=== PATIENT | female | born 1940 | race Hispanic/Latino ===

== ENCOUNTER 2025-03-25 15:07 | Emergency (ER) | payer OTHER ==
[~2025-03-25] VITALS: Ht 152.4 cm; Wt 74.4 kg
[2025-03-25 15:36] LABS: BASOPHILS # (AUTO) 0.05 K/uL (0.00-0.20); BASOPHILS % (AUTO) 0.6 % (0.0-5.0); EOSINOPHILS # (AUTO) 0.11 K/uL (0.00-0.70); EOSINOPHILS % (AUTO) 1.4 % (0.0-8.0); HEMATOCRIT 43.9 % (36-48); IMMATURE GRANULOCYTE ABSOLUTE 0.02 K/uL (0-1); LYMPHOCYTES # (AUTO) 1.7 K/uL (1.0-4.8); LYMPHOCYTES % (AUTO) 21.3 % (21.0-51.0); MEAN CORPUSCULAR HEMOGLOBIN 33.8 pg (27.0-33.0); MEAN CORPUSCULAR HGB CONC 33.5 g/dL (32.0-36.0); MEAN CORPUSCULAR VOLUME 100.9 fL (79-99); MONOCYTES # (AUTO) 0.6 K/uL (0.1-1.0); MONOCYTES % (AUTO) 7.5 % (3.0-13.0); NEUTROPHILS # (AUTO) 5.6 K/uL (1.8-7.7); PLATELET COUNT (AUTO) 292 K/uL (130-400); RED BLOOD CELL COUNT(AUTO) 4.35 MIL/uL (4.00-5.50); RED CELL DISTRIBUTION WIDTH 14.1 % (11.0-15.5); WHITE BLOOD COUNT (AUTO) 8.1 K/uL (4.8-10.8)
[2025-03-25 15:45] LABS: CREATININE 0.9 mg/dL (0.5-1.0); POTASSIUM 4.4 mmol/L (3.5-5.1)
[2025-03-25 15:50] LABS: INR 1.02 (0.85-1.15); PROTHROMBIN TIME 10.8 SEC (9.6-11.6)
[2025-03-25 15:51] LABS: PARTIAL THROMBOPLASTIN TIME 25.3 SEC (26.3-35.5)
--- NOTE | 2025-03-25 16:00 | HMCIMG ---
Exam Type: CT HEAD/BRAIN W/O CONTRAST Clinical Information: RIGHT FACE WEAKNESS Comparison: None CT Dose Index (CTDI): 57.33 mGy Dose Length Product (DLP): 956.79 total mGy-cm Findings: The examination shows atrophy. There is low attenuation throughout the periventricular white matter locations, consistent with chronic small vessel ischemic changes. 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 No acute intra- or extra-axial fluid collections are seen. There is no evidence of acute or chronic hemorrhage. There is no mass effect or shift of midline structures. The skull windows show no significant abnormalities. IMPRESSION: 1. ATROPHY AND CHRONIC ISCHEMIC CHANGES. This study was performed using dose reduction techniques to include automated exposure control and/or adjustment of the mA and/or kV according to patient size.
[2025-03-25 16:15] LABS: B-TYPE NATRIURETIC PEPTIDE 22 pg/mL (0-100)
--- NOTE | 2025-03-25 16:22 | HMCIMG ---
Exam Type: CHEST 1VW Clinical Information: STROKE Comparison: None Findings: The lungs are clear of infiltrates. The heart is large in size. The bony and soft tissue structures of the chest are unremarkable. Large hiatal hernia projects behind the cardiac silhouette. Impression: Clear lungs.
[2025-03-25 18:17] LABS: APPEARANCE,URINE CLEAR (CLEAR); BILIRUBIN,URINE NEGATIVE (NEGATIVE); COLOR,URINE LIGHT-YELLOW (YELLOW); GLUCOSE, URINE (UA) NEGATIVE (NEGATIVE); KETONES,URINE NEGATIVE (NEGATIVE); LEUKOCYTE ESTERASE ,URINE NEGATIVE Leu/uL (NEGATIVE); NITRATE,URINE NEGATIVE (NEGATIVE); OCCULT BLOOD,URINE NEGATIVE (NEGATIVE); PH,URINE 6.5 (5.0-8.0); PROTEIN,URINE NEGATIVE (NEGATIVE); UROBILINOGEN,URINE 0.2 mg/dL (0.2-1.0)
[2025-03-25 18:25] LABS: ADD UA MICROSCOPIC NO
--- NOTE | 2025-03-25 18:54 | EKG ---
[facility] Test Date: 2025-03-25 Test Time: 15:27:28 Pat Name: NAOMY BOLIVAR Department: ED Patient [place]: [facility] [id number] Room: Gender: F Candy Roller: [id number] : 1940 Requested By: ABBIE VIERA Order Number: [id number] Reading MD: Yon Calhoun Measurements Intervals [place] Rate: 88 P: 21 NH: 128 QRS: -1 QRSD: 83 T: -44 QT: 374 QTc: 454 Interpretive Statements Sinus rhythm Nonspecific T abnormalities, diffuse leads No previous ECG available for comparison Electronically Signed On 03-25-2025 21:37:08 CDT by Yon Calhoun Please click the below link to view image of tracing.
--- NOTE | 2025-03-25 19:00 | ERN ---
General Chief Complaint: Stroke Symptoms Stated Complaint: STROKE SYMPTOMS Time Seen by MD: 15:13 Source: patient History of Present Illness Initial Comments Patient is a an 84-year-old female coming in to be evaluated for right facial numbness. Patient states that these symptoms began a couple of days ago he was recently diagnosed with shingles. Patient is currently taking medication for shingles. Per family members they noticed her slurred speech earlier today and decided to come in for further evaluation. Allergies: Coded Allergies: Penicillins (Unverified Allergy, Unknown, 03/25/25) Past Medical History Past Medical History: High Cholesterol, Hypertension Past Surgical History: None ROS Dictation CONSTITUTIONAL: No chills, no fever, no weakness, no diaphoresis, no malaise. HEAD/FACE: No signs of trauma. EENT: No eye pain, no blurred vision, no tearing, no double vision, no ear pain, no ear discharge, no nose pain, no nasal congestion, no throat pain, no throat swelling, no mouth pain. RESPIRATORY: No cough, no orthopnea, no SOB, no stridor, no wheezing. CARDIOVASCULAR: No chest pain, no edema, no palpitations, no syncope. GASTROINTESTINAL/ABDOMINAL: No abdominal pain, no constipation, no diarrhea, no nausea, no vomiting. GENITOURINARY: No abnormal discharge, no dysuria, no frequent urination, no hematuria. No complaints of pain in the genitals. MUSCULOSKELETAL: No back pain, no gout, no joint pain, no joint swelling, no muscle pain, no muscle stiffness, no neck pain. INTEGUMENTARY: No change in color, no change in hair/nails, no dryness, no lesion, no lumps, no rash. NEUROLOGICAL/PSYCH: No anxiety, not depressed, no emotional problem, no headache, no numbness, no pre-existing deficit, no history of seizures, no tremors, no weakness. HEMATOLOGIC/LYMPHATIC: Not anemic, no history of blood clots, no apparent bleeding, no bruising, glands not swollen. All Systems Negative, Except as Noted. Physical Exam Physical Exam Dictation VITAL SIGNS: Reviewed. GENERAL APPEARANCE: Alert, oriented x3, no acute distress, obese. HEAD AND FACE: Non-traumatic. Facial numbness and weakness forehead not sparing EYES: PERRL, pink conjunctivas, eyelid no trauma, anterior chamber clear. EARS: Pinnas intact and no signs of trauma or erythema. Ear canals clear and no discharge. TMs no erythema. NOSE: No discharge, no bleeding. OROPHARYNX: Mouth normal, teeth no caries, tongue pink. Pharynx clear, no erythema. Tonsils no exudates, no abscesses noted. Mucous membrane moist. NECK: Supple, non-tender, no thyromegaly, no masses, no JVD, no bruits. BREAST: Deferred. CHEST: No tenderness, no crepitus, no paradoxical movement, no retractions. LUNGS: Clear, well-ventilated, symmetric, no rales, no wheezing, no rhonchi, no stridor, good breath sounds bilaterally. HEART: Regular rate, regular rhythm, no murmur, no gallops. VASCULAR: No peripheral edema. ABDOMEN: Soft, positive bowel sounds, nondistended, no guarding, nontender, no rebound, no masses no hepatomegaly, no splenomegaly, no Wasserman's sign, no hernias. RECTAL: Deferred. GENITAL: Deferred. NEUROLOGICAL: Normal speech, gross motor function intact, gross sensory function intact. MUSCULOSKELETAL: Neck nontender, full range of motion, back nontender, full range of motion. EXTREMITIES: Nontender, full range of motion. SKIN: Color pink, dry, no turgor, no rash, no lacerations, no abrasions, no contusions. LYMPHATICS: Deferred. NIH STROKE SCALE: NIH STROKE SCALE Response (Comments) Value Level of Consciousness Alert 0 Ask patient month and their age Answers both correct 0 Command to open eyes, make fist and let go Obeys both correct 0 Best gaze (horizontal eye movement) Normal 0 Visual Field Testing No Visual Field Loss 0 Facial Paresis Partial Paralysis 2 Motor Function - Left Arm Normal 0 Motor Function - Right Arm Normal 0 Motor Function - Left Leg Normal 0 Motor Function - Right Leg Normal 0 Limb Ataxia No Ataxia 0 Sensory-pin prick to arms, legs, trunk and face Normal 0 Best Language (describe picture, name items and read) No Aphasia 0 Dysarthria (read several words) Normal Articulation 0 Extinction and Inattention Normal 0 Total Results Laboratory and Microbiology Lab and Micro Result Laboratory Tests Test 03/25/25 15:24 03/25/25 18:03 White Blood Count 8.1 K/uL (4.8-10.8) Red Blood Count 4.35 MIL/uL (4.00-5.50) Hemoglobin 14.7 g/dL (12.0-16.0) Hematocrit 43.9 % (36-48) Mean Corpuscular Volume 100.9 fL (79-99) H Mean Corpuscular Hemoglobin 33.8 pg (27.0-33.0) H Mean Corpuscular Hemoglobin Concent 33.5 g/dL (32.0-36.0) Red Cell Distribution Width 14.1 % (11.0-15.5) Platelet Count 292 K/uL (130-400) Mean Platelet Volume 9.6 fL (7.5-10.5) Immature Granulocyte % (Auto) 0.2 % (0-1) Neutrophils (%) (Auto) 69.0 % (40.0-77.0) Lymphocytes (%) (Auto) 21.3 % (21.0-51.0) Monocytes (%) (Auto) 7.5 % (3.0-13.0) Eosinophils (%) (Auto) 1.4 % (0.0-8.0) Basophils (%) (Auto) 0.6 % (0.0-5.0) Neutrophils # (Auto) 5.6 K/uL (1.8-7.7) Lymphocytes # (Auto) 1.7 K/uL (1.0-4.8) Monocytes # (Auto) 0.6 K/uL (0.1-1.0) Eosinophils # (Auto) 0.11 K/uL (0.00-0.70) Basophils # (Auto) 0.05 K/uL (0.00-0.20) Absolute Immature Granulocyte (auto 0.02 K/uL (0-1) Nucleated Red Blood Cells 0.0 % (0.0-0.19) Prothrombin Time 10.8 SEC (9.6-11.6) Prothromb Time International Ratio 1.02 (0.85-1.15) Activated Partial Thromboplast Time 25.3 SEC (26.3-35.5) L Sodium Level 138 mmol/L (136-145) Potassium Level 4.4 mmol/L (3.5-5.1) Chloride Level 104 mmol/L (101-111) Carbon Dioxide Level 31 mmol/L (21-32) Blood Urea Nitrogen 22 mg/dL (7-18) H Creatinine 0.9 mg/dL (0.5-1.0) Glomerular Filtration Rate Calc 62 mL/min (>90) Whole Blood Glucose 110 MG/DL (70-110) Random Glucose 110 mg/dL (70-105) H Total Calcium 10.4 mg/dL (8.5-10.1) H Total Creatine Kinase 109 U/L (21-232) Troponin I High Sensitivity 18 ng/L (4-50) B-Type Natriuretic Peptide 22 pg/mL (0-100) LDL Cholesterol 81 mg/dL (0-99) Urine Color LIGHT-YELLOW (YELLOW) Urine Appearance CLEAR (CLEAR) Urine pH 6.5 (5.0-8.0) Urine Specific Biggs 1.018 (1.001-1.031) Urine Protein NEGATIVE mg/dL (NEGATIVE) Urine Glucose (UA) NEGATIVE mg/dL (NEGATIVE) Urine Ketones NEGATIVE mg/dL (NEGATIVE) Urine Occult Blood NEGATIVE (NEGATIVE) Urine Nitrate NEGATIVE (NEGATIVE) Urine Bilirubin NEGATIVE mg/dL (NEGATIVE) Urine Urobilinogen 0.2 mg/dL (0.2-1.0) Urine Leukocyte Esterase NEGATIVE Ailin/uL Labs Reviewed?: Yes EKG/XRAY/US/CT/MRI EKG Comment 03/25/2025 time 3:27 p.m. Ventricular rate 88 Sinus rhythm [place] [address] wave elevation [place] [address] IMAGING REPORT Signed PATIENT: NAOMY BOLIVAR MR#: [id number] : 1940 SEX: F AGE: 84 LOCATION: [facility] ORDER 15 STATUS: REG ER CLINIC / [facility] REPORT#: [id number] SERVICE 13 REASON: STROKE ORDERING PHYSICIAN: ABBIE VIERA MD PROCEDURE: CXR1VW - CHEST 1VW Exam Type: CHEST 1VW Clinical Information: STROKE Comparison: None Findings: The lungs are clear of infiltrates. The heart is large in size. The bony and soft tissue structures of the chest are unremarkable. Large hiatal hernia projects behind the cardiac silhouette. Impression: Clear lungs. DICTATED BY: PAM MARSHALL MD DATE: 03/25/25 1619 ELECTRONICALLY SIGNED BY: PAM MARSHALL MD DATE: 03/25/[address] Scan Comment [place] [address] [address] IMAGING REPORT Signed PATIENT: NAOMY BOLIVAR MR#: [id number] : 1940 SEX: F AGE: 84 LOCATION: [facility] ORDER 15 STATUS: REG ER REPORT#: [id number] SERVICE 13 REASON: RIGHT FACE WEAKNESS ORDERING PHYSICIAN: ABBIE VIERA MD PROCEDURE: HEAD WO - CT HEAD/BRAIN W/O CONTRAST Exam Type: CT HEAD/BRAIN W/O CONTRAST Clinical Information: RIGHT FACE WEAKNESS Comparison: None CT Dose Index (CTDI): 57.33 mGy Dose Length Product (DLP): 956.79 total mGy-cm Findings: The examination shows atrophy. There is low attenuation throughout the periventricular white matter locations, consistent with chronic small vessel ischemic changes. 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 No acute intra- or extra-axial fluid collections are seen. There is no evidence of acute or chronic hemorrhage. There is no mass effect or shift of midline structures. The skull windows show no significant abnormalities. IMPRESSION: 1. ATROPHY AND CHRONIC ISCHEMIC CHANGES. This study was performed using dose reduction techniques to include automated exposure control and/or adjustment of the mA and/or kV according to patient size. DICTATED BY: PAM MARSHALL MD DATE: 03/25/25 1557 ELECTRONICALLY SIGNED BY: PAM MARSHALL MD DATE: 03/25/25 1600 MDM MDM: Differential diagnosis: Right-sided Zamorano's palsy, stroke, TIA, CVA Rationale: Tests considered and ordered secondary to shared decision making include: Previous outside records reviewed: Old ER visits. Risk of complication and/or morbidity or mortality of patient management: None Medications-Per medication reconciliation Need for hospitalization: Patient does not meet criteria for hospitalization. Patient is a 84-year-old female coming in to be evaluated for right facial weakness. CT did not disclose acute findings. Based on the physical exam forehead not sparing consistent with a Zamorano's palsy. Patient was recently diagnosed with shingles in his currently on treatment. I advised her appropriate follow up with PCP in 1-2 days. ED Course Orders Procedure Category Date Status Time Cbc With Differential LAB 03/25/25 Complete 15:14 Prothrombin Time With LAB 03/25/25 Complete INR 15:14 Partial LAB 03/25/25 Complete Thromboplastin Time 15:14 Ct Head/Brain W/O CT 03/25/25 Resulted Contrast 15:14 Chest 1vw RAD 03/25/25 Resulted 15:14 12 Lead Ekg Tracing- EKG 03/25/25 Complete Technical 15:14 Creatine Kinase, Total LAB 03/25/25 Complete 15:14 Ldl Direct LAB 03/25/25 Complete 15:14 Troponin I High LAB 03/25/25 Complete Sensitivity 15:14 Urinalysis Profile LAB 03/25/25 Complete 15:14 B-Type Natriuretic LAB 03/25/25 Complete Peptide 15:14 Bedside Glucose CPOE 03/25/25 Transmitted Fingerstick 15:14 Basic Metabolic Panel LAB 03/25/25 Complete 15:14 Vital Signs Date Time Temp Pulse Resp B/P (MAP) Pulse Ox O2 Delivery O2 Flow Rate FiO2 03/25/25 17:30 97.9 93 18 138/68 95 Room Air* 0 21 03/25/25 16:30 97.9 77 18 137/74 96 Room Air* 0 03/25/25 15:29 77 18 144/81 96 Room Air* 0 21 03/25/25 15:13 97.9 95 16 146/86 96 0 DX & DISP Disposition: Discharge Departure Impression: Primary Impression: Right-sided Zamorano's palsy Additional Impression: Shingles Condition: Stable Additional Instructions: FOLLOW-UP WITH PRIMARY CARE PROVIDER IN 1 TO 2 DAYS. TAKE MEDICATIONS DIRECTED HERE IN THE EMERGENCY ROOM. OKAY TO CONTINUE HOME MEDICATIONS UNLESS OTHERWISE DISCUSSED DURING YOUR VISIT IN THE EMERGENCY ROOM TODAY. RETURN TO YOUR NEAREST EMERGENCY ROOM IF SYMPTOMS WORSEN OR IF THERE IS NO IMPROVEMENT. CALL 911 IF YOU NEED IMMEDIATE ASSISTANCE. TAKE TYLENOL [id number] NEEDED AND IF NO CONTRAINDICATIONS ARE PRESENT. INCREASE ORAL HYDRATION. A WOUND CULTURE OR URINE CULTURE WAS ORDERED HERE IN THE EMERGENCY ROOM DEPARTMENT PLEASE FOLLOW-UP WITH PRIMARY CARE PROVIDER AND ADVISE THEM TO GET REPEAT PORTS FROM OUR FACILITY. IF YOU HAD ANY YOANA WRAP/SPLINTS THAT WERE APPLIED HERE, PLEASE DO NOT REMOVE THEM UNTIL YOU SEE YOUR PRIMARY CARE OR SPECIALTY. Patient was advised to continue treatment for shingles. Shingles medication was provided by PCP. Referrals: Referrals: JACLYN REED MD (PCP) Time of Disposition: 19:11 ABBIE VIERA MD March 25, 2025 19:00
[2025-03-25 19:51] VITALS: BP 132/66; PULSE 80; RESP 18; TEMP 98.2; O2SAT 98
== END 2025-03-25 19:55 | disposition home or self-care (01) ==
LOC: EDH 15:07
DX: G51.0 Bell's palsy (principal); B02.9 Zoster without complications; E78.00 Pure hypercholesterolemia, unspecified; I10 Essential (primary) hypertension; Z88.0 Allergy status to penicillin
CPT/HCPCS: 36415; 70450; 71045; 80048; 81003; 82550; 82948; 83721; 83880; 84484; 85025; 85610; 85730; 93005; 99285